=== PATIENT | male | born 1940 | race Caucasian/White ===

== ENCOUNTER 2021-05-02 10:06 | Emergency (ER) | payer MEDICARE ==
[~2021-05-02] VITALS: Ht 190.5 cm; Wt 117.9 kg
[2021-05-02 10:56] LABS: BASOPHIL 0.4 % (0-2); EOSINOPHIL 2.3 % (0-7); HCT 43.6 % (42.0-52.0); HGB 14.2 g/dl (13.2-18.0); LYMPHOCYTE 10.9 % (15-48); MCH 30.8 pg (25.0-31.0); MCHC 32.6 g/dL (32.0-36.0); MCV 94.6 fL (78.0-100.0); MONOCYTE 6.9 % (0-12); MPV 10.4 fL (6.0-9.5); NEUTROPHIL 79.1 % (41-80); NRBC 0; PLT 248 K/uL (150-400); RBC 4.61 M/uL (4.70-6.00); WBC 13.9 K/uL (4.0-10.5)
[2021-05-02 11:00] LABS: BILIRUBIN NEGATIVE (NEGATIVE); BLOOD TRACE-INTACT Ery/uL (NEGATIVE); CLARITY CLOUDY (CLEAR); COLOR YELLOW (YELLOW); GLUCOSE (U) 1+ mg/dL (NORMAL); LEUKOCYTES 1+ Leu/uL (NEGATIVE); NITRITE NEGATIVE (NEGATIVE); PROTEIN 2+ mg/dL (NEGATIVE); SPECIFIC GRAVITY >=1.030 (1.001-1.030); UROBILINOGEN 0.2 mg/dL (0.2-1.0); pH 5.5 (5.0-9.0)
[2021-05-02 11:10] LABS: ALBUMIN 3.8 g/dL (3.4-5.0); BILIRUBIN - TOTAL 0.4 mg/dL (0.2-1.0); BUN/CREAT RATIO (CALC) 21.5 RATIO; CREATININE 0.93 mg/dL (0.67-1.17); GLOBULIN (CALCULATION) 4.1 g/dL; POTASSIUM 4.2 mmol/L (3.5-5.1); TOTAL PROTEIN 7.9 g/dL (6.4-8.2)
[2021-05-02 11:12] LABS: URINARY WBC TNTC
[2021-05-02 11:13] LABS: BACTERIA 2+; SQUAMOUS EPITHELIAL CELLS RARE
[2021-05-02] MEDS ORDERED: CIPRO500 MG PO (12:30)
[2021-05-02] MEDS ORDERED: NORCO 5-325 TA1 EACH PO (12:30)
[2021-05-02] MEDS ORDERED: ONDANSETRON ODT4 MG PO (12:30)
== END 2021-05-02 12:51 | disposition home or self-care (01) ==
LOC: FER 10:06
PROVIDERS: Emergency Medicine
DX: N13.6 Pyonephrosis (principal); E11.9 Type 2 diabetes mellitus without complications; F17.200 Nicotine dependence, unspecified, uncomplicated; Z88.0 Allergy status to penicillin
CPT/HCPCS: 36415; 80053; 81001; 85025; 87076; 87088; 87186; 93005; J1170; J2270; J2405